=== PATIENT | male | born 1975 | race Two or more races ===

== ENCOUNTER 2023-12-31 19:29 | Inpatient (IN) | payer OTHER ==
[2023-12-31 19:53] VITALS: TEMP 98.7; BMI 27.3
[2023-12-31 20:20] LABS: EOS % 1.9 % (0-4.5); HEMATOCRIT 46.7 % (35.4-49); HEMOGLOBIN 15.6 GM/dL (11.7-16.9); LYMPH % 28.1 % (8-40); MCH 31.6 pg (25.7-33.7); MCHC 33.5 g/dl (32.0-35.9); MEAN CELL VOLUME 94.5 fl (80-96); PLATELET COUNT 150 10^3/uL (134-434); RBC 4.95 M/mm3 (4.00-5.60); RDW 14.1 % (11.9-15.9); WHITE BLOOD COUNT 9.8 K/mm3 (4.0-10.0)
[2023-12-31 20:33] LABS: INR 1.15 (0.83-1.09); PROTHROMBIN TIME (PATIENT) 13.2 SEC (9.7-13.0)
[2023-12-31 20:34] LABS: POTASSIUM 3.5 mmol/L (3.5-5.1)
[2023-12-31 20:36] LABS: ACTIVATED PTT 36.4 SECONDS (25.2-36.5)
[2023-12-31 20:37] LABS: CALCIUM 8.5 mg/dL (8.5-10.1)
[2023-12-31 20:38] LABS: ALBUMIN 3.9 g/dl (3.4-5.0); BLOOD UREA NITROGEN 11.2 mg/dL (7-18)
[2023-12-31 20:41] LABS: CREATININE 0.7 mg/dL (0.55-1.3)
[2023-12-31 20:42] LABS: BILIRUBIN,TOTAL 0.8 mg/dL (0.2-1); TOT PROT 7.9 g/dl (6.4-8.2)
[2023-12-31] MEDS ORDERED: ACETAMINOPHEN INJECTION 100 ML IVPB ONE (21:10)
[2023-12-31] MEDS: ACETAMINOPHEN 1000 MG/100 ML BAG IVPB ONE (21:18)
[2023-12-31] MEDS ORDERED: DOCUSATE SODIUM 100 MG CAPSULE (FP) PO PRN (23:59)
[2024-01-01] MEDS: FOLIC ACID INJECTION - 1 MG, THIAMINE HCL 100 MG, MULTIVIT INJECTION ADULT 10 ML in SOD... IVPB ONE (01:20)
[2024-01-01] MEDS ORDERED: LORazepam 1 MG TABLET ONE ×5 (03:48→17:22)
[2024-01-01] MEDS: LORazepam 1 MG TABLET PO PRN (03:57)
[2024-01-01 04:31] LABS: METHADONE, UR NEGATIVE (NEGATIVE); PHENCYCLIDINE,URINE NEGATIVE (NEGATIVE); URINE AMPHETAMINES NEGATIVE (NEGATIVE)
[2024-01-01 04:38] LABS: COCAINE, UR NEGATIVE (NEGATIVE); OPIATES, URI NEGATIVE (NEGATIVE); URINE BARBITURATES NEGATIVE (NEGATIVE); URINE BENZODIAZEPINES POSITIVE (NEGATIVE)
[2024-01-01] MEDS: LORazepam 1 MG TABLET PO SCH (05:54)
[2024-01-01 07:06] LABS: BASO % 0.9 % (0-2.0); EOS % 1.9 % (0-4.5); HEMATOCRIT 43.6 % (35.4-49); HEMOGLOBIN 14.8 GM/dL (11.7-16.9); LYMPH % 23.1 % (8-40); MCH 31.9 pg (25.7-33.7); MEAN CELL VOLUME 93.9 fl (80-96); MEAN PLT VOLUME 10.1 fl (7.5-11.1); NEUT % 68.1 % (42.8-82.8); PLATELET COUNT 122 10^3/uL (134-434); RBC 4.65 M/mm3 (4.00-5.60); RDW 14.1 % (11.9-15.9); WHITE BLOOD COUNT 7.7 K/mm3 (4.0-10.0)
[2024-01-01 07:21] LABS: POTASSIUM 3.7 mmol/L (3.5-5.1)
[2024-01-01 07:25] LABS: ALBUMIN 3.6 g/dl (3.4-5.0); BLOOD UREA NITROGEN 10.1 mg/dL (7-18); CALCIUM 7.9 mg/dL (8.5-10.1)
[2024-01-01 07:28] LABS: CREATININE 0.6 mg/dL (0.55-1.3); PHOSPHOROUS 2.1 mg/dL (2.5-4.9)
[2024-01-01 07:30] LABS: BILIRUBIN,TOTAL 1.2 mg/dL (0.2-1); TOT PROT 7.4 g/dl (6.4-8.2)
[2024-01-01] MEDS ORDERED: ONDANSETRON 4 MG/2 ML VIAL IVPUSH PRN (10:08)
[2024-01-01] MEDS ORDERED: MAG HYDROX/AL HYDROX/SIMETH 30 ML UNIT-DOSE CUP PO PRN (10:09)
[2024-01-01] MEDS ORDERED: busPIRone HCL 10 MG TABLET (FP) PO SCH (10:11)
[2024-01-01] MEDS ORDERED: BISMUTH SUBSALICYLATE 524 MG/30 ML PO PRN (10:11)
[2024-01-01] MEDS: SERTRALINE HCL 50 MG TABLET (FP) PO SCH (12:54)
[2024-01-01] MEDS ORDERED: ACETAMINOPHEN 1000 MG/100 ML BAG IVPB PRN (15:56)
[2024-01-01 19:02] VITALS: BP 170/98; PULSE 99; RESP 22
[2024-01-02] MEDS ORDERED: LORazepam 1 MG TABLET PO SCH (05:00)
[2024-01-02] MEDS ORDERED: FOLIC ACID 1 MG TABLET (FP) PO SCH (10:00)
[2024-01-02] MEDS ORDERED: THIAMINE 100 MG TABLET PO SCH (10:00)
[2024-01-02] MEDS ORDERED: MULTIVITAMINS (DAILY MVI) TABLET (FP) PO SCH (10:00)
[2024-01-03] MEDS ORDERED: LORazepam 0.5 MG TABLET PO PRN
[2024-01-03] MEDS ORDERED: LORazepam 0.5 MG TABLET PO SCH (05:00)
[2024-01-04] MEDS ORDERED: LORazepam 0.5 MG TABLET PO ONE (05:00)
== END 2024-01-01 17:55 | disposition left against medical advice (07) | DRG 770 ==
LOC: JER 19:29 → JERBED 23:58 → OBSVTOIN 01-01 09:26
PROVIDERS: ADMIT Internal Medicine; ATTEND Internal Medicine
PROC: HZ2ZZZZ Detoxification Services for Substance Abuse Treatment (ICD-10-PCS; principal; 2023-12-31)
DX: F10.220 Alcohol dependence with intoxication, uncomplicated (principal); K70.30 Alcoholic cirrhosis of liver without ascites; F32.A Depression, unspecified; F17.210 Nicotine dependence, cigarettes, uncomplicated; F10.239 Alcohol dependence with withdrawal, unspecified; Y90.8 Blood alcohol level of 240 mg/100 ml or more; M54.9 Dorsalgia, unspecified; M54.2 Cervicalgia; F13.20 Sedative, hypnotic or anxiolytic dependence, uncomplicated; R56.9 Unspecified convulsions; R79.89 Other specified abnormal findings of blood chemistry
CPT/HCPCS: 36415; 70450-TC; 71045-TC-FY; 72125-TC; 74021-TC-FY; 80053; 80307; 82550; 82553; 83690; 83735; 84100; 84484; 85025; 85610; 85730; 93005; 93010; 99285-25; G0378; J0131

== ENCOUNTER 2024-03-28 04:38 | Day surgery (SDC) | payer OTHER ==
[2024-03-22 17:32] VITALS: BMI 26.6
[2024-03-28] MEDS ORDERED: ACETAMINOPHEN 500 MG TABLET (FP) PO PRN (12:16)
[2024-03-28] MEDS: DEXAMETHASONE SOD PHOSPHATE 10 MG/1 ML VIAL IVPUSH ONE (16:04)
[2024-03-28] MEDS: IOHEXOL 180 MG/1 ML ML IJ ONE (16:04)
[2024-03-28] MEDS: LIDOCAINE HCL 1% PRESERVATIVE FREE - 30ML VIAL IJ ONE (16:04)
[2024-03-28 16:38] VITALS: BP 146/89; PULSE 79; RESP 17; TEMP 97.8
== END 2024-03-28 16:30 | disposition home or self-care (01) ==
LOC: JASU-SURG 04:38
PROVIDERS: ATTEND Pain Medicine Pain Medicine
PROC: 3E0R3BZ Introduction of Anesthetic Agent into Spinal Canal, Percutaneous Approach (ICD-10-PCS; 2024-03-28)
PROC: 3E0R33Z Introduction of Anti-inflammatory into Spinal Canal, Percutaneous Approach (ICD-10-PCS; principal; 2024-03-28 13:45)
DX: M54.16 Radiculopathy, lumbar region (principal); M48.061 Spinal stenosis, lumbar region without neurogenic claudication
CPT/HCPCS: J1100